=== PATIENT | male | born 1960 | race Caucasian/White ===

== ENCOUNTER 2017-09-16 13:30 | Emergency (ER) | payer MEDICAID ==
[~2017-09-16] VITALS: Ht 172.7 cm; Wt 55.2 kg
[2017-09-16 13:34] VITALS: BP 132/83
[2017-09-16] MEDS ORDERED: DOXY100C43 PO (13:55)
[2017-09-16] MEDS ORDERED: PRED5TAB PO (13:55)
== END 2017-09-16 14:14 | disposition home or self-care (01) ==
LOC: ER 13:31
DX: J20.9 Acute bronchitis, unspecified (principal); J06.9 Acute upper respiratory infection, unspecified; F17.210 Nicotine dependence, cigarettes, uncomplicated; Z79.899 Other long term (current) drug therapy
CPT/HCPCS: 93005; 99283; 99406